=== PATIENT | male | born 1930 | race Caucasian/White ===

== ENCOUNTER 2019-10-02 05:35 | Day surgery (SDC) | payer OTHER ==
[~2019-10-02] VITALS: Ht 162.6 cm; Wt 66.2 kg
[~2019-10-02 05:35] MED LIST: B-121000 MC1 PO; BRAIN MIGHT-DH1 EACH PO; CARVEDILOL12.5 MG PO; ENALAPRIL MALEA10 MG NGT; ISORBIDE PO; OMEGA 3 500 SO1 EACH PO; OMEGA-31000 MG PO; ZOCOR20 MG PO
== END 2019-10-02 10:05 | disposition home or self-care (01) ==
LOC: CIR.AMB 05:35
DX: N13.1 Hydronephrosis with ureteral stricture, not elsewhere classified (principal)